=== PATIENT | female | born 1990 | race Caucasian/White ===

== ENCOUNTER 2016-06-05 23:35 | Emergency (ER) | payer OTHER ==
[~2016-06-05] VITALS: Ht 160 cm; Wt 55.2 kg
[~2016-06-05 23:35] MED LIST: ALL DAY ALLERGY10 MG PO; ANAPROX DS550 M1 PO; CLARITIN10 M3 PO; ERYTHROMYCIN O3.5 GM TP; FLEXERIL10 MG PO; FLOVENT 11120 INHALA IH; HYDROCODON-ACE1 EAC7 PO; INDOCIN25 MG PO; LIDOCAINE20 MG/1 M5 PO; MACROBID100 MG PO; TESSALON PERLE100 MG PO; TYLENOL WITH C1 EACH PO; ULTRACET1 TABLET PO; VENTOLIN HFA18 GM IH; ZITHROMAX Z-PA250 MG PO
[2016-06-06 01:45] LABS: HEMATOCRIT 39.6 % (36.0-46.0); MCH 32.3 PG (29.0-34.0); MCHC 35.1 G/DL (30.0-36.0); MCV 92.1 FL (83-99); MEAN PLAT.VOLUME 10.6 uM^3 (9.5-12.4); PLATELET COUNT 192 K/uL (156-360); RBC DIS.WIDTH-CV 12.2 % (11.8-14.6); RBC DIS.WIDTH-SD 40.2 % (39-53); WHITE BLOOD COUNT 15.9 K/uL (4.1-10.2)
[2016-06-06 01:56] LABS: CHLORIDE 111 mEq/L (99-109); POTASSIUM 3.7 mEq/L (3.7-5.4); SODIUM 142 mEq/L (136-147)
[2016-06-06 01:58] LABS: GLUCOSE 119 mg/dL (70-99)
[2016-06-06 02:00] LABS: ANION GAP 9 MEQ/L (2-14)
[2016-06-06 02:02] LABS: GFR ESTIMATE (CALCULATED) > 59 mL/min/
[2016-06-06 02:03] LABS: UREA NITROGEN (BUN) 13 mg/dL (9-23)
[2016-06-06 02:20] LABS: QUANTITATIVE HCG < 4.0 MIU/ML
[2016-06-06 02:36] LABS: ADD MIUA? YES; BILIRUBIN NEGATIVE; BLOOD NEGATIVE; COLOR YELLOW ((YELLOW)); GLUCOSE (STRIP) NEGATIVE; KETONES 40; LEUKOCYTES MODERATE; NITRITE NEGATIVE; PH, URINE 5.5 (5-8); PROTEIN (STRIP) NEGATIVE; SPECIFIC GRAVITY 1.029 (1.000-1.030); UROBILINOGEN 0.2 MG/DL (0.2-1.0)
[2016-06-06] MEDS ORDERED: AZITHROMYCIN250 MG PO (02:52)
[2016-06-06 02:55] LABS: EPITHELIAL CELLS 1+ /HPF; MUCUS NONE SEEN /LPF; RED BLOOD CELLS 0-5 /HPF (0-5)
[2016-06-06 02:56] LABS: BACTERIA 3+ /HPF; CASTS NONE SEEN /LPF; CRYSTALS NONE SEEN; UCUL ADDED? YES
[2016-06-06] MEDS ORDERED: CIPRO500 MG PO (03:13)
[2016-06-06 03:45] VITALS: BP 113/81
== END 2016-06-06 03:40 | disposition home or self-care (01) ==
LOC: EME 23:35
PROVIDERS: Emergency Medicine
DX: J01.40 Acute pansinusitis, unspecified (principal); R51 Headache; D72.829 Elevated white blood cell count, unspecified; N30.90 Cystitis, unspecified without hematuria; F17.200 Nicotine dependence, unspecified, uncomplicated; Z88.0 Allergy status to penicillin
CPT/HCPCS: 70450; 80048; 81003; 84702; 85027; 87077; 87086; 99281; 99285; J0780; J1100; J1200; J1885; J7030